=== PATIENT | male | born 1985 | race Hispanic/Latino ===

== ENCOUNTER 2024-03-30 15:32 | Emergency (ER) | payer SELFPAY | END 2024-03-30 19:10 | disposition home or self-care (01) | LOC: ERS 15:32 | DX: M25.512 Pain in left shoulder (principal) ==

== ENCOUNTER 2024-12-24 15:20 | Outpatient (CLI) | payer OTHER | END 2024-12-24 15:21 | disposition home or self-care (01) | LOC: BICRAD 15:20 | PROVIDERS: ATTEND Nurse Practitioner Family | DX: M54.50 Low back pain, unspecified (principal); M25.78 Osteophyte, vertebrae; M47.816 Spondylosis without myelopathy or radiculopathy, lumbar region | CPT/HCPCS: 72100 ==